=== PATIENT | female | born 1935 | race African-American/Black ===

== ENCOUNTER 2018-08-05 10:20 | Emergency (ER) | payer OTHER ==
[~2018-08-05] VITALS: Ht 152.4 cm; Wt 59.9 kg
[~2018-08-05 10:20] MED LIST: PANADOL EXTRA500 MG
== END 2018-08-05 16:12 | disposition home or self-care (01) ==
LOC: ER 10:20
DX: L03.116 Cellulitis of left lower limb (principal); B35.3 Tinea pedis